=== PATIENT | male | born 1935 | race Caucasian/White ===

== ENCOUNTER 2019-02-16 09:13 | Emergency (ER) | payer MEDICARE, OTHER ==
[2019-02-16 09:21] VITALS: BP 94/66
[2019-02-16] MEDS ORDERED: ACETAMINOPHEN 325 MG TABLET PO ONE (11:19)
[2019-02-16] MEDS ORDERED: NAPROXEN 250 MG TABLET PO ONE (11:19)
--- NOTE | 2019-02-16 11:22 | ER Document Report ---
HPI - HPI Patient complains to provider of: Okay Time Seen by Provider: 02/16/19 10:48 Pain Level: 4 Context: Patient is an 83-year-old male who presents the emergency department with a chief complaint of right elbow pain. He describes his pain as a sore pain in the joint of his elbow. He was volunteering at [employer] and was lifting items such as a microwave and boxes. He did not feel any pop or anything during that time. He does have history of a tear in his bicep about a year ago. He was seen by his primary care year ago in regards to his bicep tear. He did feel a snap year ago when that happened, and has not had his bicep repaired due to his chronic medical conditions. He is on Eliquis, Protonix, carvedilol, losartan, Crestor, aspirin, and Ambien. - ROS Systems Reviewed and Negative: Yes All other systems reviewed and negative - CONSTITUTIONAL Constitutional: DENIES: Fever, Chills - EENT EENT: DENIES: Sore Throat - NEURO Neurology: DENIES: Headache - CARDIOVASCULAR Cardiovascular: DENIES: Chest pain - RESPIRATORY Respiratory: DENIES: Trouble Breathing - MUSCULOSKELETAL Musculoskeletal: REPORTS: Extremity pain - Right elbow. DENIES: Back Pain, Neck Pain - DERM Skin Color: Normal Skin Problems: None Past Medical History - Social History Smoking Status: Never Smoker Family History: Reviewed & Not Pertinent Vertical Provider Document - CONSTITUTIONAL Agree With Documented VS: Yes Exam Limitations: No Limitations General Appearance: No Apparent Distress - INFECTION CONTROL TRAVEL OUTSIDE OF THE [place] IN LAST 30 DAYS: No - HEENT HEENT: Atraumatic, Normocephalic, PERRLA - NECK Neck: Normal Inspection - RESPIRATORY Respiratory: Breath Sounds Normal, No Respiratory Distress - CARDIOVASCULAR Cardiovascular: Regular Rate, Regular Rhythm Pulses: Normal: Brachial, Radial - NEURO Level of Consciousness: Awake, Alert, Appropriate Motor/Sensory: No Sensory Deficit, Weak Motor Strength RUE - DERM Integumentary: Warm, Dry, No Rash Course - Re-evaluation Re-evalutation: 02/16/19 11:22 Patient will be sent for a x-ray of the right elbow. He also received a dose of naproxen and Tylenol. 02/16/19 12:04 Patient's x-rays is negative for any acute fracture. There is a small osteophyte noted on x-ray. 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 He will be provided a sling and he will rest the area, ice it, elevate it, and apply Aspercreme with lidocaine as needed. I do not suspect a septic joint. Verbal discharge instructions were given to the patient. They verbalized understanding. They are stable for discharge. - Vital Signs Vital signs: Temp Pulse Resp BP Pulse Ox 97.6 F 71 18 94/66 L 97 02/16/19 09:19 02/16/19 09:19 02/16/19 09:19 02/16/19 09:19 02/16/19 09:19 Discharge - Discharge Clinical Impression: Osteoarthrosis of right elbow, Right elbow pain Condition: Stable Disposition: HOME, SELF-CARE Additional Instructions: You were seen today in the emergency department for right elbow pain. You have osteoporosis. You may take acetaminophen 1000 mg every 6 hours as needed for the pain. You may also buy [id number] Aspercreme with lidocaine and apply to the area per box instructions. Please follow-up with your primary care provider in regards to this visit. Wear your sling as needed.
--- NOTE | 2019-02-16 11:59 | RADIOLOGY REPORT (SQ) ---
EXAM DESCRIPTION: ELBOW LEFT OVER 2 VIEWS COMPLETED DATE/TIME: 02/16/2019 11:40 am REASON FOR STUDY: elbow pain COMPARISON: None. NUMBER OF VIEWS: Four views. TECHNIQUE: AP, lateral, and both oblique radiographic images acquired of the left elbow. LIMITATIONS: None. FINDINGS: MINERALIZATION: Normal. BONES: No acute fracture or dislocation. No worrisome bone lesions. JOINT: Joint space narrowing consistent with osteoarthritis. Small osteophytes. SOFT TISSUES: No soft tissue swelling. No foreign body. OTHER: No other significant finding. IMPRESSION: No acute findings. Degenerative changes. TECHNICAL DOCUMENTATION: JOB ID: [id number] [employer]- All Rights Reserved Reading location - IP/workstation name: [email or web address]
== END 2019-02-16 12:15 | disposition home or self-care (01) ==
LOC: ER 09:13
DX: M19.021 Primary osteoarthritis, right elbow (principal); M25.521 Pain in right elbow; X50.0XXA Overexertion from strenuous movement or load, initial encounter
CPT/HCPCS: 99283; 73080; A9270 ×2